=== PATIENT | female | born 1975 | race Caucasian/White ===

== ENCOUNTER 2017-06-26 08:28 | Emergency (ER) | payer MEDICAID, OTHER ==
[~2017-06-26] VITALS: Ht 170.2 cm; Wt 86.2 kg
[2017-06-26 08:28] VITALS: BP_SYST 146
--- NOTE | 2017-06-26 08:28 | NUR ---
BROUGHT BACK TO BED #3 AND TRIAGED, REPORT GIVEN TO GIORGI
--- NOTE | 2017-06-26 08:34 | NUR ---
Assumed pt care. Pt c/o chest pressure, headache, and tingling in both hands, ongoing since last night. Pt states that she wasn't able to sleep r/t headache and a groggy sensation in her head. Denies c/o N/V or SOB. No focal neurodeficits.
--- NOTE | 2017-06-26 08:34 | NUR ---
Placed in room 3. Placed on monitoring engineer, blood pressure machine and pulse oximeter. To gown for exam. Side rails up. Report given to Melvin PANDYA.
--- NOTE | 2017-06-26 08:38 | NUR ---
# 20 gauge angiocath placed to LHA. Use of asceptic technique. Opsite placed over site. Blood return noted. Blood for lab drawn from site. Flushed with 10 cc of normal saline. No evidence of infiltration noted. Patient tolerated well.
--- NOTE | 2017-06-26 08:42 | NUR ---
Dr. Kerr at bedside.
[2017-06-26] MEDS ORDERED: ASPIRIN 81 MG TAB.CHEW PO ONE (08:45)
[2017-06-26] MEDS ORDERED: NITROGLYCERIN 0.4 MG TAB.SUBL SL ONE (08:45)
--- NOTE | 2017-06-26 08:58 | NUR ---
x-ray at bedside.
[2017-06-26 09:03] LABS: BASOPHILS % (AUTO) 0.3 % (0.0-2.0); EOSINOPHILS # (AUTO) 0.1 K/uL (0.0-0.4); EOSINOPHILS % (AUTO) 1.3 % (0.0-4.0); HEMATOCRIT 47.7 % (36-48); HEMOGLOBIN 15.7 g/dL (12.0-16.0); LYMPHOCYTES # (AUTO) 1.8 K/uL (1.0-5.5); LYMPHOCYTES % (AUTO) 26.9 % (20.5-51.5); MEAN CORPUSCULAR HEMOGLOBIN 29 pg (27-31); MEAN CORPUSCULAR HGB CONC 33 % (32-36); MEAN CORPUSCULAR VOLUME 90 fL (79.0-98.0); MONOCYTES # (AUTO) 0.4 K/uL (0.0-1.0); MONOCYTES % (AUTO) 6.4 % (1.7-9.3); NEUTROPHILS # (AUTO) 4.4 K/uL (1.8-7.7); NEUTROPHILS % (AUTO) 65.1 % (40.0-70.0); PLATELET COUNT (AUTO) 279 K/uL (130-430); RED BLOOD CELL COUNT(AUTO) 5.33 MIL/uL (4.2-6.2); WHITE BLOOD COUNT (AUTO) 6.8 K/uL (4.8-10.8)
[2017-06-26 09:10] LABS: CALCIUM 9.3 mg/dL (8.4-11.0); CREATININE 0.63 mg/dL (0.55-1.30); POTASSIUM 3.7 mmol/L (3.5-5.1)
[2017-06-26 09:13] LABS: ALBUMIN 3.8 g/dL (3.4-4.8); INR 0.9 (0.8-1.2); PROTHROMBIN TIME 9.6 SECS (9.5-12.5); TOTAL BILIRUBIN 0.7 mg/dL (0.0-1.0)
--- NOTE | 2017-06-26 09:15 | NUR ---
Verbalizes improvement to chest pain and H/A. No needs verbalized at this time.
[2017-06-26 10:45] VITALS: BP_SYST 134
--- NOTE | 2017-06-26 10:45 | NUR ---
Patient given written and verbal discharge instructions and verbalizes understanding. ER MD discussed with patient the results and treatment provided. Patient in stable condition. ID arm band removed. IV catheter removed intact and dressing applied, no active bleeding. Rx of Ativan given. Patient educated on pain management and to follow up with PMD. Pain Scale 2/10. Opportunity for questions provided and answered. Medication side effect fact sheet provided.
== END 2017-06-26 10:45 | disposition home or self-care (01) ==
LOC: SED 08:28
DX: F43.23 Adjustment disorder with mixed anxiety and depressed mood (principal)
CPT/HCPCS: 36415; 71045; 80053; 81025; 82550-TC; 83880; 84484; 85025; 85610-TC; 85730-TC; 93005; 99285